=== PATIENT | female | born 1985 | race Caucasian/White ===

== ENCOUNTER 2025-01-07 09:58 | Emergency (ER) | payer SELFPAY ==
--- NOTE | ~2025-01-07 | XR_ITS ---
EXAMINATION: XR hand RT min 3V DATE: 01/07/2025 10:42 INDICATION: Lateral right hand pain and swelling post fall TECHNIQUE: Posteroanterior, oblique and lateral views of the right hand were obtained. COMPARISON: None. FINDINGS: Nondisplaced fracture at the base of the fifth metacarpal with subtle interruption of the ulnar-sided cortex on the oblique projection and suggestion of minimal buckling along the radial sided cortex on the dorsal palmar projection. No definitive intra-articular extension. Alignment remains essentially anatomic. There is mild overlying soft tissue swelling. Joint spaces are normal. IMPRESSION: 1. Nondisplaced fracture at the base of the right fifth metacarpal without evident intra-articular ex tension. Reviewed, dictated and finalized at location A. IMPRESSION: 1. Nondisplaced fracture at the base of the right fifth metacarpal without evid ent intra-articular extension.
--- NOTE | ~2025-01-07 | XR_ITS ---
EXAMINATION: XR shoulder LT min 2V DATE: 01/07/2025 10:43 INDICATION: Superior left shoulder pain post fall TECHNIQUE: AP internally and externally rotated, AP oblique externally rotated and transscapular Y vi ews of the left shoulder were obtained. COMPARISON: None FINDINGS: Upper thoracic levoscoliosis with moderate spondylosis. Normal alignment at the left shoulder. No fr acture. Glenohumeral joint is normal. Acromioclavicular joint is normal. Soft tissues are unremarkabl e. Visualized portion of the lungs are clear. Stenting along the thoracic aorta. Likely carotid body stimulator with partial split the subcutaneous tissues at the anterolateral left chest wall and lead tips projecting over the left base of the neck. IMPRESSION: No acute osseous abnormality. Reviewed, dictated and finalized at location A.
--- OUTSIDE RECORDS SUMMARY | 2025-01-07 10:02 | XMS_ITS | Referral Summary ---
Author Organization [facility] [address] [facility] [[email or web address]] Address [address] [place] [address] Care Team Providers Care Professor Of Biostatistics Name Role Phone Nelly Pond Primary Care Provider +1- [phone] Allergies No known active allergies Medications OXcarbazepine (TRILEPTAL) 600 mg tablet Take by mouth 07/18/2012 Active lamoTRIgine (LaMICtal) 100 mg tablet TAKE 1 & 1 2 (ONE & ONE HALF) TABLETS BY MOUTH ONCE DAILY IN THE MORNING 3 03/24/2019 Active levETIRAcetam (KEPPRA) 750 mg tablet Take 1,500 mg by mouth 2 (two) times a day 3 04/26/2019 Active FYCOMPA 4 mg tablet 05/02/2019 Active citalopram (CeleXA) 10 mg tablet Take 10 mg by mouth 2 (two) times a day 06/24/2020 Active Active Problems Problem Noted Date Diagnosed Date BMI 27.0-27.9,adult 06/26/2020 Assessment & Plan (06/26/2020 12:26 PM CATECHIST): Weight/BMI is in healthy range. Continue healthy lifestyle to maintain. Need for influenza vaccination 06/26/2020 Assessment & Plan (06/26/2020 9:25 PM CATECHIST): Updated in office today Seizure disorder 05/12/2019 Overview (05/16/2019): VNS in place Continue with Neurology Assessment & Plan (06/26/2020 9:26 PM CATECHIST): Continue per neurology Intellectual disability 05/12/2019 Assessment & Plan (05/16/2019 8:58 PM CDT): Still lives with father who technical support assistant with her care/coordination Mild episode of recurrent major depressive disor jacob 05/12/2019 Overview (05/12/2019): Mother 2013 lung cancer and still grieving Assessment & Plan (06/26/2020 9:24 PM CATECHIST): Neurologist started her on Celexa Assessment & Plan (05/16/2019 8:58 PM CDT): Stable today 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 Villatoro for management. History of open heart surgery 03/13/2015 Common truncus arteriosus 02/27/2015 Assessment & Plan (06/26/2020 9:24 PM CATECHIST): See aortic valve disease Assessment & Plan (05/16/2019 8:57 PM CDT): Refer back to Dr. Villatoro for management. Aortic valve disease 02/27/2015 Assessment & Plan (06/26/2020 9:23 PM CATECHIST): Provided letter from Dr. Villatoro's office for her father to call and set up followup. If he has problems, he is to call and will be glad to assist. Assessment & Plan (05/16/2019 8:57 PM CDT): Refer back to Dr. Villatoro for management. Resolved Problems Problem Noted Date Diagnosed Date Resolved Date Medicare annual wellness visit, subsequent 06/26/2020 06/30/2021 Assessment & Plan (06/26/2020 9:26 PM CATECHIST): Encouraged healthy lifestyle, good nutrition and exercise. Encouraged Calcium and Vitamin D and weight bearing exercise for bone health. Reviewed immunizations Reviewed age appropirate screenings. Medicare annual wellness visit, initial 05/16/2019 06/26/2020 Assessment & Plan (06/26/2020 9:24 PM CATECHIST): Encouraged healthy lifestyle, good nutrition and exercise. Encouraged Calcium and Vitamin D and weight bearing exercise for bone health. Reviewed immunizations Reviewed age appropirate screenings. Assessment & Plan (05/16/2019 8:58 PM CDT): Encouraged healthy lifestyle, good nutrition and exercise. Encouraged Calcium and Vitamin D and weight bearing exercise for bone health. Reviewed immunizations Reviewed age appropirate screenings. Documentation is on the chart Need for immunization against influenza 05/16/2019 06/26/2020 Assessment & Plan (06/26/2020 9:24 PM CATECHIST): Updated in office today Assessment & Plan (05/16/2019 8:59 PM CDT): Updated in office today BMI 28.0-28.9,adult 05/15/2019 06/26/20 20 Assessment & Plan (05/15/2019 4:37 PM CDT): BMI Follow-up includes: Discussed diet and exercising counseling. Immunizations Immunization Administration Dates Next Due Influenza, Quadrivalent, Spl it, Preservative Free, Intramuscular 06/26/2020,05/15/2019 Influenza, Trivalent, IM (MDV) 05/15/2013 Influenza, Trivalent, Preservative Free, Intramu scular 04/06/2017 Tdap 08/18/2016 Social History Tobacco Use Types Packs/Day Years Used Date Smoking Tobacco: Never Smokeless Tobacco: Never Alcohol Use Standard Drinks/Week Comments Yes 0 (1 standard drink = 0.6 oz pur e alcohol) PHQ-2 Answer Date Recorded PHQ-2 Total Score (If total score is 3 or more points, staff should administer the PHQ-9) 6 06/26/2020 Personal Safety Answer Date Recorded Getting School Help Needed Not on file 10/23 Comments Unknown Sex and Gender Information Value Date Recorded Sex Assigned at Not on file Legal Sex Female 3:36 AM CATECHIST Gender Identity Not on file Sexual Orientation Not on file Last Filed Vital Signs Vital Sign Reading Time Taken Comments Blood Pressure 128/66 06/26/2020 12:22 PM CATECHIST Pulse 56 06/26/2020 12:22 PM CATECHIST Temperature 36.5 C (97.7 F) 06/26/2020 12:22 PM CATECHIST Respiratory Rate - - Oxygen Saturation 98% 06/26/2020 12:22 PM CATECHIST Inhaled Oxygen Concentration - - Weight 65.9 kg (145 lb 3.2 oz) 06/26/2020 12:22 PM CATECHIST Height 154.9 cm (5' 1) 06/26/2020 12:22 PM CATECHIST Body Mass Index 27.44 06/26/2020 12:22 PM CATECHIST Plan of Treatment [place] [address] [facility] MEDICARE [facility] Address: [address] [address] [place] [address] Care Teams Professor Of Biostatistics Relationship Specialty Start Date End Date Nelly Pond PA [address] [facility] [address] [place] [address] PCP - General Internal Medicine 12/23/18
--- OUTSIDE RECORDS SUMMARY | 2025-01-07 10:02 | XMS_ITS | Encounter Summary ---
Author Organization [facility] Address [address] [place] [address] Phone Care Team Providers Care Cook Cashier Food Prep Name Role Phone Nelly Pond Primary Care Provider [phone]- [phone] Encounter Details Date Type Department Care Team (Latest Contact Info) Description 03/13/2015 Orders Only [facility] Scanning, Provider Social History Tobacco Use Types Packs/Day Years Used Date Smoking Tobacco: Never Alcohol Use Standard Drinks/Week Comments Yes 0 (1 standard drink = 0.6 oz pur e alcohol) Comments Unknown Sex and Gender Information Value Date Recorded Sex Assigned at Not on file Legal Sex Female 3:36 AM MEDIA PROMOTER Gender Identity Not on file Sexual Orientation Not on file documented as of this encounter Plan of Treatment Not on file documented as of this encounter Procedures Procedure Name Priority Date/Time Associated Diagnosis Comments CARDIOLOGY DOCUMENT SCAN 03/13/2015 documented in this encounter Results * SCAN - CARDIOLOGY (03/13/2015) Anatomical Region Laterality Modality Other us Provider Scanning CV CARDIAC SERVICES PROCEDURES Final Result documented in this encounter Visit Diagnoses Not on filedocumented in this encounter Care Teams Cook Cashier Food Prep Relationship Specialty Start Date End Date Nelly Pond PA [address] [place] [address] PCP - General Internal Medicine 12/23/18 documented as of this encounter
--- OUTSIDE RECORDS SUMMARY | 2025-01-07 10:02 | XMS_ITS | Clinical Summary ---
Author Organization [facility] [address] [facility] Address [address] [place] [address] Care Team Providers Care Weight Loss Physician Name Role Phone Nelly Pond Primary Care Provider +1- [phone] Allergies No known active allergies Medications OXcarbazepine [...] 06/26/2020 Assessment & Plan (06/26/2020 12:26 PM SECONDARY SET UP MAN): Weight/BMI is in healthy range. Continue healthy lifestyle to maintain. Need for influenza vaccination 06/26/2020 Assessment & Plan (06/26/2020 9:25 PM SECONDARY SET UP MAN): Updated in office today Seizure disorder 05/12/2019 Overview (05/16/2019): VNS in place Continue with Neurology Assessment & Plan (06/26/2020 9:26 PM SECONDARY SET UP MAN): Continue per neurology Intellectual disability 05/12/2019 Assessment & Plan (05/16/2019 8:58 PM CDT): Still lives with father who orthopaedic physician assistant with her care/coordination Mild episode of recurrent major depressive disor jacob 05/12/2019 Overview (05/12/2019): Mother 2013 lung cancer and still grieving Assessment & Plan (06/26/2020 9:24 PM SECONDARY SET UP MAN): Neurologist started her on Celexa Assessment & Plan (05/16/2019 8:58 PM CDT): Stable today 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 Villatoro for management. History of open heart surgery 03/13/2015 Common truncus arteriosus 02/27/2015 Assessment & Plan (06/26/2020 9:24 PM SECONDARY SET UP MAN): See aortic valve disease Assessment & Plan (05/16/2019 8:57 PM CDT): Refer back to Dr. Villatoro for management. Aortic valve disease 02/27/2015 Assessment & Plan (06/26/2020 9:23 PM SECONDARY SET UP MAN): Provided letter from Dr. Villatoro's office for [...] 06/30/2021 Assessment & Plan (06/26/2020 9:26 PM SECONDARY SET UP MAN): Encouraged healthy lifestyle, good nutrition and exercise. Encouraged Calcium and Vitamin D and weight bearing exercise for bone health. Reviewed immunizations Reviewed age appropirate screenings. Medicare annual wellness visit, initial 05/16/2019 06/26/2020 Assessment & Plan (06/26/2020 9:24 PM SECONDARY SET UP MAN): Encouraged healthy lifestyle, good nutrition and exercise. [...] 06/26/2020 Assessment & Plan (06/26/2020 9:24 PM SECONDARY SET UP MAN): Updated in office today Assessment & Plan (05/16/2019 8:59 PM CDT): Updated in office today BMI 28.0-28.9,adult 05/15/2019 06/26/20 20 Assessment & Plan (05/15/2019 4:37 PM CDT): BMI Follow-up includes: Discussed diet and exercising counseling. Immunizations Immunization Administration Dates Next Due Influenza, Quadrivalent, Spl it, Preservative Free, Intramuscular 06/26/2020,05/15/2019 Influenza, Trivalent, IM (MDV) 05/15/2013 Influenza, Trivalent, Preservative Free, Intramu scular 04/06/2017 Tdap 08/18/2016 Family History Medical History Relation Name Comments Other Father 2 Alive and well; Relation Name Status Comments Father 1 Alive Father 2 Social History Tobacco Use Types Packs/Day Years [...] on file Legal Sex Female 3:36 AM SECONDARY SET UP MAN Gender Identity Not on file Sexual Orientation Not on file Obstetrics History Last Filed Vital Signs Vital Sign Reading Time Taken Comments Blood Pressure 128/66 06/26/2020 12:22 PM SECONDARY SET UP MAN Pulse 56 06/26/2020 12:22 PM SECONDARY SET UP MAN Temperature 36.5 C (97.7 F) 06/26/2020 12:22 PM SECONDARY SET UP MAN Respiratory Rate - - Oxygen Saturation 98% 06/26/2020 12:22 PM SECONDARY SET UP MAN Inhaled Oxygen Concentration - - Weight 65.9 kg (145 lb 3.2 oz) 06/26/2020 12:22 PM SECONDARY SET UP MAN Height 154.9 cm (5' 1) 06/26/2020 12:22 PM SECONDARY SET UP MAN Body Mass Index 27.44 06/26/2020 12:22 PM SECONDARY SET UP MAN Plan of Treatment Not on file Insurance [facility] MEDICARE [facility] Address: [address] [address] [place] [address] Care Teams Weight Loss Physician Relationship Specialty Start Date End Date Nelly Pond PA [address] [facility] [address] [place] [address] PCP - General Internal Medicine 12/23/18
--- OUTSIDE RECORDS SUMMARY | 2025-01-07 10:02 | XMS_ITS | Encounter Summary ---
Author Organization [facility] Address [address] [place] [address] Phone Care Team Providers Care Mobile Equipment Operator Name Role Phone Latrell Lezama MD Primary Care Provider [phone] [phone] Sly Kurtz MD Unavailable [phone] Reason for Visit * Reason Comments Medication Refill Encounter Details Date Type Department Care Team (Late st Contact Info) Description 09/22/2020 Refill [facility] - Neurology [facility] [address] [place] [address] Sly Kurtz MD [address] [place] [phone] Medication Refill Social History Tobacco Use Types Packs/Day Years Used Date Smoking Tobacco: Never Smokeless Tobacco: Never Alcohol Use Standard Drinks/Week Comments Yes 0 (1 standard drink = 0.6 oz pur e alcohol) once every few months Comments No Sex and Gender Information Value Date Recorded Sex Assigned at Not on file Legal Sex Female 9:46 PM CDT Gender Identity Not on file Sexual Orientation Not on file documented as of this encounter Plan of Treatment Not on file documented as of this encounter Visit Diagnoses Not on filedocumented in this encounter Care Teams Mobile Equipment Operator Relationship Specialty Start Date End Date Latrell Lezama MD [address] [place], [place] [id number] PCP - General Family Medicine 09/09/15 Sly Kurtz MD [address] [place] [address] Consulting Physician Neurology 09/09/15 06/25/24 documented as of this encounter
--- OUTSIDE RECORDS SUMMARY | 2025-01-07 10:02 | XMS_ITS | Encounter Summary ---
Author Organization [facility] Address [address] [place] [address] Phone Care Team Providers Care Internet Sales Associate Name Role Phone Latrell Lezama MD Primary Care Provider [phone] [phone] Sly Kurtz MD Unavailable [phone] Reason for Visit * Reason Comments Medication Refill Encounter Details Date Type Department Care Team (Late st Contact Info) Description 11/20/2020 Refill [facility] - Neurology [facility] [address] [place] [address] Sly Kurtz MD [address] [place] [id number] Medication Refill Social History Tobacco Use Types [...] documented as of this encounter Visit Diagnoses Diagnosis Grief Adjustment disorder with depressed mood documented in this encounter Care Teams Internet Sales Associate Relationship Specialty Start Date End Date Latrell Lezama MD [address] [place] [address] PCP - General Family Medicine 09/09/15 Sly Kurtz MD [address] [place] [address] Consulting Physician Neurology 09/09/15 06/25/24 documented as of this encounter
--- OUTSIDE RECORDS SUMMARY | 2025-01-07 10:02 | XMS_ITS | Encounter Summary ---
Author Organization [facility] Address [address] [place] [address] Phone Care Team Providers Care Director Presales Name Role Phone Latrell Lezama MD Primary Care Provider [phone] [phone] Sly Kurtz MD Unavailable [phone] Reason for Visit * Reason Comments Medication Refill Encounter Details Date Type Department Care Team (Late st Contact Info) Description 10/02/2020 Refill [facility] - Neurology [facility] [address] [place] [address] Sly Kurtz MD [address] [place] [phone] Medication Refill Social History Tobacco Use Types [...] on filedocumented in this encounter Care Teams Director Presales Relationship Specialty Start Date End Date Latrell Lezama MD [address] [place], [place] [id number] PCP - General Family Medicine 09/09/15 Sly Kurtz MD [address] [place] [address] Consulting Physician Neurology 09/09/15 06/25/24 documented as of this encounter
--- OUTSIDE RECORDS SUMMARY | 2025-01-07 10:02 | XMS_ITS | Encounter Summary ---
Author Organization [facility] Address [address] [place] [address] Phone Care Team Providers Care Poll Watcher Name Role Phone Latrell Lezama MD Primary Care Provider [phone] [phone] Sly Kurtz MD Unavailable [phone] Reason for Visit * Reason Comments Medication Refill Encounter Details Date Type Department Care Team (Late st Contact Info) Description 07/21/2020 Refill [facility] - Neurology [facility] [address] [place] [address] Sly Kurtz MD [address] [place] [address] Medication Refill Social History Tobacco Use Types [...] on filedocumented in this encounter Care Teams Poll Watcher Relationship Specialty Start Date End Date Latrell Lezama MD [address] [place], [place] [phone] PCP - General Family Medicine 09/09/15 Sly Kurtz MD [address] [place] [address] Consulting Physician Neurology 09/09/15 06/25/24 documented as of this encounter
--- OUTSIDE RECORDS SUMMARY | 2025-01-07 10:02 | XMS_ITS | Clinical Summary ---
Author Organization [facility] Address [address] [place] [address] [place] [address] Care Team Providers Care Flat Spring Assembler Name Role Phone Latrell Lezama MD Primary Care Provide r Source Comments [facility],non-owned Affiliates and Associated Physician Practices is amultiple site organization consisting of ambulatory clinics and hospital sitesin [place], [place], [place] and [place]. This disclosure is being madepursuant to the Care Everywhere program and may not contain all information available regarding this patient. Last updated 18.[facility] Allergies No known active allergies Medications * Be aware that medications may not be up to date on this document. Alwaysverify current medications with the patient. levETIRAcetam (KEPPRA) 750 MG tablet Take 750 mg by mouth 2 times daily Active citalopram (CELEXA) 10 MG tablet Take 10 mg by mouth once daily Active lamoTRIgine (LAMICTAL) 200 MG tablet Take 200 mg by mouth once daily Active OXcarbazepine (TRILEPTAL) 600 MG tablet Take 900 mg by mouth 2 times daily Active Social History Tobacco Use Types Packs/Day Years Used Date Smoking Tobacco: Never Smokeless Tobacco: Never Comments Unknown Sex and Gender Information Value Date Recorded Sex Assigned at Not on file Legal Sex Female 3:05 PM CDT Gender Identity Not on file Sexual Orientation Not on file Last Filed Vital Signs Vital Sign Reading Time Taken Comments Blood Pressure 133/72 06/17/2017 9:02 AM CORRECTIONS SERGEANT Pulse 74 06/17/2017 9:02 AM CORRECTIONS SERGEANT Temperature 36.8 C (98.3 F) 06/11/2017 11:52 AM CDT Respiratory Rate 16 06/11/2017 11:52 AM CDT Oxygen Saturation 100% 06/11/2017 11:52 AM CDT Inhaled Oxygen Concentration - - Weight 59 kg (130 lb) 06/17/2017 9:02 AM CORRECTIONS SERGEANT Height 152.4 cm (5') 06/17/2017 9:02 AM CORRECTIONS SERGEANT Body Mass Index 25.39 06/17/2017 9:02 AM CORRECTIONS SERGEANT Plan of Treatment Health Maintenance Due Date Last Done Comments LIPID TESTING 1984 MAMMOGRAM 1984 HIV SCREENING 12/19/1999 HEPATITIS C SCREENING 12/14/2002 DTAP/TDAP/TD VACCINES (1 - Tdap) 12/19/2003 HEPATITIS B VACCINE (1 of 3 - 19+ 3-dose series) 12/19/2003 COVID-19 VACCINE ( - 2023-2 5 season) 2024 DEPRESSION SCREENING 08/09/2024 INFLUENZA VACCINE (Season Ended) 2025 ZOSTER VACCINE (1 of 2) 2034 HIB VACCINE Aged Out No longer eligi ble based on patient's age to complete this topic HPV VACCINE Aged Out No longer eligi ble based on patient's age to complete this topic MENINGOCOCCAL (Group B) VACC INE SHARED DECISION-MAKING Aged Out No longer eligibl e based on patient's age to complete this topic MENINGOCOCCAL GROUPS A/C/Y/W VACCINE Aged Out No longer eligible b ased on patient's age to complete this topic PNEUMOCOCCAL VACCINE Aged Out No long er eligible based on patient's age to complete this [place] [address] [place] [address] [place] [address] MEDICARE [place] - [place] Advance Directives * Full Code (Latest Code Status on File) Date Activated Date Inactivated Comments 02/15/2017 9:53 AM 02/18/2017 3:21 PM Care Teams Flat Spring Assembler Relationship Specialty Start Date End Date Latrell Lezama MD PCP - General Family Medicine 02/16/17
--- OUTSIDE RECORDS SUMMARY | 2025-01-07 10:02 | XMS_ITS | Encounter Summary ---
Author Organization [facility] Address [address] [facility] [place] [address] Phone Care Team Providers Care Surgical First Assistant Name Role Phone Latrell Lezama MD Primary Care Provider [phone] [phone] Sly Kurtz MD Unavailable [phone] Reason for Visit * Reason Comments Medication Refill Encounter Details Date Type Department Care Team (Late st Contact Info) Description 02/15/2020 Refill [facility] - Neurology [facility] #[address] [place] [address] Sly Kurtz MD [address] [place] [phone] Medication Refill Social History Tobacco Use Types [...] on file Sexual Orientation Not on file COVID-19 Exposure Response Date Recorded In the last month, have you been in contact with someone who was confirmed or suspected to have Coronavirus / COVID-19? No / Unsure 02/15/2020 3:15 PM CDT documented as of this encounter Plan of Treatment Not on file documented as of this encounter Visit Diagnoses Not on filedocumented in this encounter Care Teams Surgical First Assistant Relationship Specialty Start Date End Date Latrell Lezama MD [address] [place] [address] PCP - General Family Medicine 09/09/15 Sly Kurtz MD [address] [place] [address] Consulting Physician Neurology 09/09/15 06/25/24 documented as of this encounter
--- OUTSIDE RECORDS SUMMARY | 2025-01-07 10:02 | XMS_ITS | Clinical Summary ---
Author Organization [facility] Address [address] [facility] [address] [facility], [place] [address] Phone Care Team Providers Care Drywall Hanger Name Role Phone Latrell Lezama MD Primary Care Provider [phone]- [phone] Allergies No known active allergies Medications citalopram (CeleXA) 10 MG TabletIndicatio ns:Grief Take 2 tablets by mouth twice daily 120 Tablet 11/21/2020 Active diazePAM (Diastat AcuDial) 10 MG GelIndications: Seizure, partial (HCC) 10 mg by Rectal route daily as needed for Other (for seizure longer than 5 min). 10 mg 3 01/13/2021 Active levETIRAcetam (KEPPRA) 750 MG TabletIndicatio ns:Seizure, partial (HCC) Take 1 Tablet by mouth 2 times daily. 360 Tablet 01/13/2021 Active citalopram (CeleXA) 40 MG TabletIndicatio ns:Seizure, partial (HCC) Take 0.5 Tablets by mouth 2 times daily. 90 Tablet 03/26/2021 Active lamoTRIgine (LaMICtal) 100 MG TabletIndicatio ns:Seizure, partial (HCC) TAKE 1 & 1/2 TABLETS BY MOUTH ONCE DAILY IN THE MORNING 135 Tablet 03/26/2021 Active lamoTRIgine (LaMICtal) 200 MG TabletIndicatio ns:Seizure, partial (HCC) Take 1 Tablet by mouth nightly. 90 Tablet 03/26/2021 Active OXcarbazepine (TRILEPTAL) 600 MG TabletIndicatio ns:Seizure, partial (HCC) TAKE 1 & 1/2 TABLETS BY MOUTH TWICE DAILY 270 Tablet 03/26/2021 Active Perampanel (Fycompa) 6 MG TabletIndicatio ns:Seizure, partial (HCC) Take 1 Tablet by mouth nightly. 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 Immunizations Immunization Administration Dates Next Due Influenza Vaccine, Quadrivalent, PF 06/26/2020,1 ,04/06/2017 Social History Tobacco Use Types Packs/Day Years Used Date Smoking Tobacco: Never Smokeless Tobacco: Never Tobacco Cessation:Counseling Given: No Alcohol Use Standard Drinks/Week Comments Yes 0 (1 standard drink = 0.6 oz pur e alcohol) once every few months Comments No Sex and Gender Information Value Date Recorded Sex Assigned at Not on file Legal Sex Female 9:46 PM CDT Gender Identity Not on file Sexual Orientation Not on file Last Filed Vital Signs Vital Sign Reading Time Taken Comments Blood Pressure 116/60 05/16/2020 1:20 PM CDT Pulse 78 05/16/2020 1:20 PM CDT Temperature 36.5 C (97.7 F) 05/16/2020 1:20 PM CDT Respiratory Rate 16 05/16/2020 1:20 PM CDT Oxygen Saturation 99% 05/16/2020 1:20 PM CDT Inhaled Oxygen Concentration - - Weight 66.6 kg (146 lb 12.8 oz) 05/16/2020 1:20 PM CDT Height 152.4 cm (5') 05/16/2020 1:20 PM CDT Body Mass Index 28.67 05/16/2020 1:20 PM CDT Plan of Treatment Health Maintenance Due Date Last Done Comments Hepatitis C Virus (HCV) Screening 1984 Hepatitis B Immunization (1 of 3 - 19+ 3-dose series) 12/19/2003 Influenza Immunization (#1) 04/09/202406/09, 05/15/2019, 04/06/2017, Additional history exists SARS-COV-2 Immunization ( - season) 2024 Respiratory Syncytial Virus (RSV) Immunization (Adult) (1 - 1-dose 75+ series) 12/19/2059 DTaP/Tdap/Td Immunization Discontinued 08/18/2016 TdaP Immunization Completed 08/18/2016 Meningococcal Immunization (ACWY) Aged Out No longer eligible based on patient's age to complete this topic Pneumococcal Immunization Combined Aged Out No longer eligible based on patient's age to complete this topic Rotavirus Immunization Aged Out No lo nger eligible based on patient's age to complete [place] [address] MEDICARE [place]ID [place] Care Teams Drywall Hanger Relationship Specialty Start Date End Date Latrell Lezama MD [address] [place] [address] PCP - General Family Medicine 09/09/15
--- OUTSIDE RECORDS SUMMARY | 2025-01-07 10:02 | XMS_ITS | Encounter Summary ---
Author Organization [facility] Address [address] [place] [address] Phone Care Team Providers Care Drop Wire Operator Name Role Phone Latrell Lezama MD Primary Care Provider [phone] [phone] Sly Kurtz MD Unavailable [phone] Reason for Visit * Reason Comments Medication Refill Encounter Details Date Type Department Care Team (Late st Contact Info) Description 03/25/2020 [facility]ill [facility] [address] [place] [address] Sly Kurtz MD [address] [place] [address] Medication Refill Social History Tobacco Use Types [...] on filedocumented in this encounter Care Teams Drop Wire Operator Relationship Specialty Start Date End Date Latrell Lezama MD [address] [place], [place] [id number] PCP - General Family Medicine 09/09/15 Sly Kurtz MD [address] [place] [address] Consulting Physician Neurology 09/09/15 06/25/24 documented as of this encounter
--- OUTSIDE RECORDS SUMMARY | 2025-01-07 10:02 | XMS_ITS | Encounter Summary ---
Author Organization [facility] Address [address] [place]. [address] Phone Care Team Providers Care Concrete Boom Operator Name Role Phone Latrell Lezama MD Primary Care Provider [phone] [phone] Sly Kurtz MD Unavailable [phone] Reason for Visit * Reason Comments Medication Refill Encounter Details Date Type Department Care Team (Late st Contact Info) Description 06/23/2020 Refill [facility] - Neurology [facility] [address] [place] [address] Sly Kurtz MD [address] [place] [address] Medication Refill Social History Tobacco Use Types [...] have Coronavirus / COVID-19? No / Unsure 05/28/2020 12:11 PM CDT documented as of this encounter Plan of Treatment Not on file documented as of this encounter Visit Diagnoses Not on filedocumented in this encounter Care Teams Concrete Boom Operator Relationship Specialty Start Date End Date Latrell Lezama MD [address] [place] [address] PCP - General Family Medicine 09/09/15 Sly Kurtz MD [address] [place] [address] Consulting Physician Neurology 09/09/15 06/25/24 documented as of this encounter
--- OUTSIDE RECORDS SUMMARY | 2025-01-07 10:02 | XMS_ITS | Encounter Summary ---
Author Organization [facility] Address [address] [place] [address] Phone Care Team Providers Care Millinery Worker Name Role Phone Latrell Lezama MD Primary Care Provider [phone] [phone] Sly Kurtz MD Unavailable [phone] Reason for Visit * Reason Comments Medication Refill Encounter Details Date Type Department Care Team (Late st Contact Info) Description 04/10/2021 Refill [facility] - Neurology [facility] [address] [place] [address] Sly Kurtz MD [address] [place] [address] Medication Refill Social History Tobacco Use Types [...] as of this encounter Visit Diagnoses Diagnosis Seizure, partial w/ secondary generalize w/ intract seizure Other convulsions documented in this encounter Care Teams Millinery Worker Relationship Specialty Start Date End Date Latrell Lezama MD [address] [place] [address] PCP - General Family Medicine 09/09/15 Sly Kurtz MD [address] [place] [address] Consulting Physician Neurology 09/09/15 06/25/24 documented as of this encounter
--- OUTSIDE RECORDS SUMMARY | 2025-01-07 10:02 | XMS_ITS | Encounter Summary ---
Author Organization [facility] Address [address] [place] [address] Phone Care Team Providers Care Patient Access Specialist Name Role Phone Latrell Lezama MD Primary Care Provider [phone] [phone] Sly Kurtz MD Unavailable [phone] Reason for Visit * Reason Comments Medication Refill Encounter Details Date Type Department Care Team (Late st Contact Info) Description 12/08/2020 Refill [facility] [address] [place] [address] Sly Kurtz MD [address] [place] [address] Medication Refill Social History Tobacco Use Types [...] on filedocumented in this encounter Care Teams Patient Access Specialist Relationship Specialty Start Date End Date Latrell Lezama MD [address] [place], [place] [phone] PCP - General Family Medicine 09/09/15 Sly Kurtz MD [address] [place] [address] Consulting Physician Neurology 09/09/15 06/25/24 documented as of this encounter
--- OUTSIDE RECORDS SUMMARY | 2025-01-07 10:02 | XMS_ITS | Encounter Summary ---
Author Organization [facility] Address [address] [place] [address] Phone Care Team Providers Care Youtuber Name Role Phone Latrell Lezama MD Primary Care Provider [phone] [phone] Sly Kurtz MD Unavailable [phone] Reason for Visit * Reason Comments Medication Refill Encounter Details Date Type Department Care Team (Late st Contact Info) Description 01/15/2020 Refill [facility] [address] [place] [address] Sly Kurtz MD [address] [place] [address] Medication Refill Social History Tobacco Use Types [...] on filedocumented in this encounter Care Teams Youtuber Relationship Specialty Start Date End Date Latrell Lezama MD [address] [place], [place] [phone] PCP - General Family Medicine 09/09/15 Sly Kurtz MD [address] [place] [address] Consulting Physician Neurology 09/09/15 06/25/24 documented as of this encounter
--- OUTSIDE RECORDS SUMMARY | 2025-01-07 10:02 | XMS_ITS | Encounter Summary ---
Author Organization [facility] Address [address] [place] [address] Phone Care Team Providers Care Maintenance Service Supervisor Name Role Phone Latrell Lezama MD Primary Care Provider [phone] [phone] Sly Kurtz MD Unavailable [phone] Reason for Visit * Reason Comments Medication Refill Encounter Details Date Type Department Care Team (Late st Contact Info) Description 11/17/2020 Refill [facility] [address] [place] [address] Sly Kurtz MD [address] [place] [address] Medication Refill Social History Tobacco Use Types [...] on filedocumented in this encounter Care Teams Maintenance Service Supervisor Relationship Specialty Start Date End Date Latrell Lezama MD [address] [place], [place] [id number] PCP - General Family Medicine 09/09/15 Sly Kurtz MD [address] [place] [address] Consulting Physician Neurology 09/09/15 06/25/24 documented as of this encounter
--- OUTSIDE RECORDS SUMMARY | 2025-01-07 10:02 | XMS_ITS | Encounter Summary ---
Author Organization [facility] Address [address] [place] [address] Phone Care Team Providers Care Chemical Radiation Technician Name Role Phone Latrell Lezama MD Primary Care Provider [phone] [phone] Sly Kurtz MD Unavailable [phone] Reason for Visit * Reason Comments Medication Refill Encounter Details Date Type Department Care Team (Late st Contact Info) Description 11/09/2020 Refill [facility] [address] [place] [address] Sly Kurtz MD [address] [place] [address] Medication Refill Social History Tobacco Use Types [...] mood documented in this encounter Care Teams Chemical Radiation Technician Relationship Specialty Start Date End Date Latrell Lezama MD [address] [place] [address] PCP - General Family Medicine 09/09/15 Sly Kurtz MD [address] [place] [address] Consulting Physician Neurology 09/09/15 06/25/24 documented as of this encounter
[2025-01-07 10:10] VITALS: O2SAT 98
[2025-01-07 10:11] VITALS: BP 132/74; PULSE 72; RESP 16; O2SAT 100
[2025-01-07 10:13] VITALS: BP 132/74; PULSE 80; RESP 12; TEMP 37.2; O2SAT 100
--- NOTE | 2025-01-07 11:42 | ED_ITS ---
HPI - Fall General Chief Complaint: Fall Stated Complaint: fell down stairs, possible seizure Time Seen by Provider: 01/07/25 10:08 Related Data Allergies Allergy/AdvReac Type Severity Reaction Status Date / Time No Known Allergies Allergy Verified 01/07/25 10:00 Course Vital Signs Vital signs: Vital Signs Temperature 98.9 F 01/07/25 10:13 Pulse Rate 80 01/07/25 10:13 Respiratory Rate 12 01/07/25 10:13 Blood Pressure 132/74 01/07/25 10:13 Pulse Oximetry 100 01/07/25 10:13 Oxygen Delivery Room Air 01/07/25 10:13 Temperature 98.9 F 01/07/25 10:13 Pulse Rate 80 01/07/25 10:13 Respiratory Rate 12 01/07/25 10:13 Blood Pressure 132/74 01/07/25 10:13 Pulse Oximetry 100 01/07/25 10:13 Oxygen Delivery Room Air 01/07/25 10:13 Discharge Plan Discharge Clinical Impression: Fracture of wrist Patient Disposition: Home Condition: Stable Instructions: Hand Fracture (ED), Epilepsy (ED) Additional Instructions: Please keep the splint on, and follow up with your doctor when you get home. You can always return to the ER for any further issues. Make sure you are taking all your medications. Patient Language: Kiswahili Follow-up/Referrals: PHYSICIAN NOT ON STAFF,NONSTAFF [Primary Care Provider] -
--- OUTSIDE RECORDS SUMMARY | 2025-01-07 17:57 | XMS_ITS | Encounter Summary ---
Author Organization [facility] Address [address] [place] [address] Phone Care Team Providers Care Mining Engineering Technologist Name Role Phone Latrell Lezama MD Primary Care Provider [phone] [phone] Sly Kurtz MD Unavailable [phone] Reason for Visit * Reason Comments Medication Refill Encounter Details Date Type Department Care Team (Late st Contact Info) Description 07/21/2020 [facility]ill [facility] [address] [place] [address] Sly Kurtz MD [address] [place] [address] Medication Refill Social History Tobacco Use Types [...] on filedocumented in this encounter Care Teams Mining Engineering Technologist Relationship Specialty Start Date End Date Latrell Lezama MD [address] [place], [place] [phone] PCP - General Family Medicine 09/09/15 Sly Kurtz MD [address] [place] [address] Consulting Physician Neurology 09/09/15 06/25/24 documented as of this encounter
--- OUTSIDE RECORDS SUMMARY | 2025-01-07 17:57 | XMS_ITS | Encounter Summary ---
Author Organization [facility] Address [address] [place] [address] Phone Care Team Providers Care Cheerleading Coach Name Role Phone Latrell Lezama MD Primary Care Provider [phone] [phone] Sly Kurtz MD Unavailable [phone] Reason for Visit * Reason Comments Medication Refill Encounter Details Date Type Department Care Team (Late st Contact Info) Description 12/08/2020 Refill [facility] [address] [place] [address] Sly Kurtz MD [address] [place] [address] Medication Refill Social History Tobacco Use Types [...] on filedocumented in this encounter Care Teams Cheerleading Coach Relationship Specialty Start Date End Date Latrell Lezama MD [address] [place], [place] [address] PCP - General Family Medicine 09/09/15 Sly Kurtz MD [address] [place] [address] Consulting Physician Neurology 09/09/15 06/25/24 documented as of this encounter
--- OUTSIDE RECORDS SUMMARY | 2025-01-07 17:57 | XMS_ITS | Clinical Summary ---
Author Organization [facility] Address [address] [facility] [place] [address] Phone Care Team Providers Care Metal Weather Stripper Name Role Phone Latrell Lezama MD Primary Care Provider [phone] Allergies No known active allergies Medications citalopram [...] patient's age to complete [place] [address] MEDICARE [place]ID [place] Care Teams Metal Weather Stripper Relationship Specialty Start Date End Date Latrell Lezama MD [address] [place] [address] PCP - General Family Medicine 09/09/15
--- OUTSIDE RECORDS SUMMARY | 2025-01-07 17:57 | XMS_ITS | Encounter Summary ---
Author Organization [facility] Address [address] [facility] [place] [address] Phone Care Team Providers Care Mri Technologist Name Role Phone Latrell Lezama MD Primary Care Provider [phone] Sly Kurtz MD Unavailable [phone] Reason for Visit * Reason Comments Medication Refill Encounter Details Date Type Department Care Team (Late st Contact Info) Description 06/23/2020 Refill [facility] - Neurology [facility] [address] [place] [address] Sly Kurtz MD [address] [place] [address] Medication Refill Social History Tobacco Use Types [...] on filedocumented in this encounter Care Teams Mri Technologist Relationship Specialty Start Date End Date Latrell Lezama MD [address] [place] [address] PCP - General Family Medicine 09/09/15 Sly Kurtz MD [address] [place] [address] Consulting Physician Neurology 09/09/15 06/25/24 documented as of this encounter
--- OUTSIDE RECORDS SUMMARY | 2025-01-07 17:57 | XMS_ITS | Encounter Summary ---
Author Organization [facility] Address [address] [place] [address] Phone Care Team Providers Care Cloak Room Attendant Name Role Phone Latrell Lezama MD Primary Care Provider [phone] [phone] Sly Kurtz MD Unavailable [phone] Reason for Visit * Reason Comments Medication Refill Encounter Details Date Type Department Care Team (Late st Contact Info) Description 11/20/2020 [facility]ill [facility] [address] [place] [address] Sly Kurtz MD [address] [place] [address] Medication Refill Social History Tobacco Use Types [...] mood documented in this encounter Care Teams Cloak Room Attendant Relationship Specialty Start Date End Date Latrell Lezama MD [address] [place] [address] PCP - General Family Medicine 09/09/15 Sly Kurtz MD [address] [place] [address] Consulting Physician Neurology 09/09/15 06/25/24 documented as of this encounter
--- OUTSIDE RECORDS SUMMARY | 2025-01-07 17:57 | XMS_ITS | Encounter Summary ---
Author Organization [facility] Address [address] [place] [address] Phone Care Team Providers Care Military Lawyer Name Role Phone Latrell Lezama MD Primary Care Provider [phone] [phone] Sly Kurtz MD Unavailable [phone] Reason for Visit * Reason Comments Medication Refill Encounter Details Date Type Department Care Team (Late st Contact Info) Description 11/17/2020 Refill [facility] #[address] [place] [address] Sly Kurtz MD [address] [place] [address] Medication Refill Social History Tobacco Use Types [...] on filedocumented in this encounter Care Teams Military Lawyer Relationship Specialty Start Date End Date Latrell Lezama MD [address] [place], [place] [phone] PCP - General Family Medicine 09/09/15 Sly Kurtz MD [address] [place] [address] Consulting Physician Neurology 09/09/15 06/25/24 documented as of this encounter
--- OUTSIDE RECORDS SUMMARY | 2025-01-07 17:57 | XMS_ITS | Encounter Summary ---
Author Organization [facility] Address [address] [place] [address] Phone Care Team Providers Care Perpetual Inventory Clerk Name Role Phone Latrell Lezama MD Primary Care Provider [phone] [phone] Sly Kurtz MD Unavailable [phone] Reason for Visit * Reason Comments Medication Refill Encounter Details Date Type Department Care Team (Late st Contact Info) Description 11/09/2020 Refill [facility] [address] [place] [address] Sly Kurtz MD [address] [place] [address] Medication Refill Social History Tobacco Use Types [...] mood documented in this encounter Care Teams Perpetual Inventory Clerk Relationship Specialty Start Date End Date Latrell Lezama MD [address] [place] [address] PCP - General Family Medicine 09/09/15 Sly Kurtz MD [address] [place] [address] Consulting Physician Neurology 09/09/15 06/25/24 documented as of this encounter
--- OUTSIDE RECORDS SUMMARY | 2025-01-07 17:57 | XMS_ITS | Clinical Summary ---
Author Organization [facility] [facility] Address [address] [place] [address] Care Team Providers Care It Project Lead Name Role Phone Nelly Pond Primary Care Provider +1- [phone] Allergies No known active allergies Medications OXcarbazepine [...] 06/26/2020 Assessment & Plan (06/26/2020 12:26 PM GASTROENTEROLOGY PROFESSOR): Weight/BMI is in healthy range. Continue healthy lifestyle to maintain. Need for influenza vaccination 06/26/2020 Assessment & Plan (06/26/2020 9:25 PM GASTROENTEROLOGY PROFESSOR): Updated in office today Seizure disorder 05/12/2019 Overview (05/16/2019): VNS in place Continue with Neurology Assessment & Plan (06/26/2020 9:26 PM GASTROENTEROLOGY PROFESSOR): Continue per neurology Intellectual disability 05/12/2019 Assessment & Plan (05/16/2019 8:58 PM CDT): Still lives with father who pastry assistant with her care/coordination Mild episode of recurrent major depressive disor jacob 05/12/2019 Overview (05/12/2019): Mother 2013 lung cancer and still grieving Assessment & Plan (06/26/2020 9:24 PM GASTROENTEROLOGY PROFESSOR): Neurologist started her on Celexa Assessment & Plan (05/16/2019 8:58 PM CDT): Stable today 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 Villatoro for management. History of open heart surgery 03/13/2015 Common truncus arteriosus 02/27/2015 Assessment & Plan (06/26/2020 9:24 PM GASTROENTEROLOGY PROFESSOR): See aortic valve disease Assessment & Plan (05/16/2019 8:57 PM CDT): Refer back to Dr. Villatoro for management. Aortic valve disease 02/27/2015 Assessment & Plan (06/26/2020 9:23 PM GASTROENTEROLOGY PROFESSOR): Provided letter from Dr. Villatoro's office for [...] 06/30/2021 Assessment & Plan (06/26/2020 9:26 PM GASTROENTEROLOGY PROFESSOR): Encouraged healthy lifestyle, good nutrition and exercise. Encouraged Calcium and Vitamin D and weight bearing exercise for bone health. Reviewed immunizations Reviewed age appropirate screenings. Medicare annual wellness visit, initial 05/16/2019 06/26/2020 Assessment & Plan (06/26/2020 9:24 PM GASTROENTEROLOGY PROFESSOR): Encouraged healthy lifestyle, good nutrition and exercise. [...] 06/26/2020 Assessment & Plan (06/26/2020 9:24 PM GASTROENTEROLOGY PROFESSOR): Updated in office today Assessment & Plan [...] on file Legal Sex Female 3:36 AM GASTROENTEROLOGY PROFESSOR Gender Identity Not on file Sexual Orientation Not on file Obstetrics History Last Filed Vital Signs Vital Sign Reading Time Taken Comments Blood Pressure 128/66 06/26/2020 12:22 PM GASTROENTEROLOGY PROFESSOR Pulse 56 06/26/2020 12:22 PM GASTROENTEROLOGY PROFESSOR Temperature 36.5 C (97.7 F) 06/26/2020 12:22 PM GASTROENTEROLOGY PROFESSOR Respiratory Rate - - Oxygen Saturation 98% 06/26/2020 12:22 PM GASTROENTEROLOGY PROFESSOR Inhaled Oxygen Concentration - - Weight 65.9 kg (145 lb 3.2 oz) 06/26/2020 12:22 PM GASTROENTEROLOGY PROFESSOR Height 154.9 cm (5' 1) 06/26/2020 12:22 PM GASTROENTEROLOGY PROFESSOR Body Mass Index 27.44 06/26/2020 12:22 PM GASTROENTEROLOGY PROFESSOR Plan of Treatment Not on file Insurance [facility] MEDICARE Care Teams It Project Lead Relationship Specialty Start Date End Date Nelly Pond PA [address] [facility] [address] [place] [address] PCP - General Internal Medicine 12/23/18
--- OUTSIDE RECORDS SUMMARY | 2025-01-07 17:57 | XMS_ITS | Encounter Summary ---
Author Organization [facility] Address [address] [place] [address] Phone Care Team Providers Care Barrel Rib Matting Machine Operator Name Role Phone Latrell Lezama MD Primary Care Provider [phone] [phone] Sly Kurtz MD Unavailable [phone] Reason for Visit * Reason Comments Medication Refill Encounter Details Date Type Department Care Team (Late st Contact Info) Description 04/10/2021 Refill [facility] - Neurology [facility] [address] [place] [address] Sly Kurtz MD [address] [place] [address] Medication Refill Social History Tobacco Use Types [...] convulsions documented in this encounter Care Teams Barrel Rib Matting Machine Operator Relationship Specialty Start Date End Date Latrell Lezama MD [address] [place] [address] PCP - General Family Medicine 09/09/15 Sly Kurtz MD [address] [place] [address] Consulting Physician Neurology 09/09/15 06/25/24 documented as of this encounter
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
--- OUTSIDE RECORDS SUMMARY | 2025-01-07 17:57 | XMS_ITS | Clinical Summary ---
Author Organization [facility] Address [address] [place] [address] [place] [address] Care Team Providers Care Hospice Case Manager Name Role Phone Latrell Lezama MD Primary Care Provide r Source Comments [facility],non-owned Affiliates and Associated Physician Practices is amultiple site organization consisting of ambulatory clinics and hospital sitesin [place], [place], [place] and [place]. This disclosure is being madepursuant to the Care Everywhere program and may not contain all information available regarding this patient. Last updated 18.[facility] Allergies No known active allergies Medications [...] Comments Blood Pressure 133/72 06/17/2017 9:02 AM TOWEL STRETCHER Pulse 74 06/17/2017 9:02 AM TOWEL STRETCHER Temperature 36.8 C (98.3 F) 06/11/2017 11:52 AM CDT Respiratory Rate 16 06/11/2017 11:52 AM CDT Oxygen Saturation 100% 06/11/2017 11:52 AM CDT Inhaled Oxygen Concentration - - Weight 59 kg (130 lb) 06/17/2017 9:02 AM TOWEL STRETCHER Height 152.4 cm (5') 06/17/2017 9:02 AM TOWEL STRETCHER Body Mass Index 25.39 06/17/2017 9:02 AM TOWEL STRETCHER Plan of Treatment Health Maintenance Due Date [...] patient's age [place] [address] [place] [address] MEDICARE MEDICAID - [place] Advance Directives * Full Code (Latest Code Status on File) Date Activated Date Inactivated Comments 02/15/2017 9:53 AM 02/18/2017 3:21 PM Care Teams Hospice Case Manager Relationship Specialty Start Date End Date Latrell Lezama MD PCP - General Family Medicine 02/16/17
--- OUTSIDE RECORDS SUMMARY | 2025-01-07 17:57 | XMS_ITS | Encounter Summary ---
Author Organization [facility] Address [address] [place] [address] Phone Care Team Providers Care Copper Etcher Name Role Phone Latrell Lezama MD Primary Care Provider [phone] Sly Kurtz MD Unavailable [phone] Reason for Visit * Reason Comments Medication Refill Encounter Details Date Type Department Care Team (Late st Contact Info) Description 01/15/2020 Refill [facility] - [facility] [address] [place] [address] Sly Kurtz MD [address] [place] [address] Medication Refill Social History Tobacco Use Types [...] on filedocumented in this encounter Care Teams Copper Etcher Relationship Specialty Start Date End Date Latrell Lezama MD [address] [place], [place] [id number] PCP - General Family Medicine 09/09/15 Sly Kurtz MD [address] [place] [address] Consulting Physician Neurology 09/09/15 06/25/24 documented as of this encounter
--- OUTSIDE RECORDS SUMMARY | 2025-01-07 17:57 | XMS_ITS | Data Portability ---
Author Organization [place] [facility] Address [address] [facility] [address] [place] [address] Care Team Providers Care Green Plumber Name Role Phone YOON BERGERON Primary Care Provider [employer] MEDICAL RECORDS OTHER Assessment Encounter Date Assessment Date Assessment LastModified by Organization Details LastModified Time 07/07/2021 07/07/2021 Overview/History : 35 yo female, new pt of and new to provider with a pmhx of seizure disorder, intellectual disability, and heart problems is being seen for nasal congestion, runny nose, sore throat, and intermittent mild cough for past 2 days. Pt is with guardian, who is her father. Pt has not been taking any medication for symptoms. Pt denies any difficulty swallowing. Denies any seasonal allergies. States appetite is normal. She is not drinking enough water. [facility] due [facility] symptoms. Father/guardian did a rapid covid test at home, which was negative. [facility]ational center requires a PCR test to return. Exam: T- 100.2- Pt to take tylenol OTC as directed, R-18, O2 98%, 124/70, HR- 88. Alert and oriented x4. Not acutely ill appearing, no cardiopulmonary distress noted. LS clear bilaterally, no adventitious sounds auscultated. S1S2 auscultated no murmur, RRR. Rest of exam benign. DDx considered, but not limited to: pharyngitis, seasonal allergies, URI Work up/Results: Rapid strep- negative Throat culture sent- will F/U with results. COVID 19 PCR test- will F/U with results. Pt to follow CDC guidelines for quarantining and escalation precautions. Plan/Discussion: Discussed and reviewed patient complaints and clinical findings with patient. * Take OTC tylenol as directed prn pain and fever. * Salt water gargles or throat lozenges for sore throat. * Nasal saline spray and mucinex- use as directed for nasal congestion. * Stay hydrated by drinking plenty of fluids. * F/U in 1-2 days with DH if symptoms persist or worsen. * F/U with PCP in 1-2 days. Plan of care was discussed with patient and family, and are agreeable, all questions answered. Verbalized understanding, evaluated using teach back. Patient to go to ER and/or call 911 if develops worsening or worrisome symptoms including but not limited to fever, SOB, or chest pain, or any sudden or severe developments. . Record will be transmitted to PCP. [email or web address] Not available 07/07/2021 22:36:30 05/08/2022 05/08/2022 Time On Scene with Patient: 00:17:29 [email or web address] Not available 05/08/2022 13:24:13 Plan of Treatment Reminders Order Date Submit Date Provider Last Modified By Organization Details Last Modified Time Details Appointments None recorded. Lab rapid strep group A, throat [address] [place] [address] [facility] [address], [place], [address], 22:33:25 culture, throat 2020 [facility], [address] [place], [address], 19:12:30 unlisted lab - sars-cov-2 virus PCR (covid-19) [address] [place] [facility], [address] [place], [address], 12:22:20 Referral None recorded. Procedures None recorded. Surgeries None recorded. Imaging None recorded. Medication Orders None recorded. Patient TargetsNo targets recorded. Patient Instructions Encounter Date Encounter Id Patient Instructions Last Modified By Organization Details Last Modified Time 07/07/2021 [id number] sore throat: car e instructions Not available 07/07/2021 22:33:22 coronavirus (covid-19): care instructions Not available 07/07/2021 22:33:27 Reason for Referral None Reported. Results Created Date Observation Date Name Description Value Unit Range Abnormal Flag Note LastModifiedBy Organization Detail LastModifiedTime 07/07/20 21 07/07/2021 SARS- COV-2 VIRUS PCR (COVI D-19) equivocal: Equivo temi: False Not Available [facility] [address] [place] [address], [id number], 07/10/2021 06:30:02 07/07/2007/07/2021 SARS- COV-2 VIRUS PCR (COVI D-19) MS2: MS2: 23.440 28437 Not Available [facility] [address] [place] [address], [address], 07/10/2021 06:30:02 07/07/20 21 07/07/2021 SARS- COV-2 VIRUS PCR (COVI D-19) N gene: N gene: Undete rmined Not Available [facility] [address] [place] [address], [address], 07/10/2021 06:30:02 07/07/20 21 07/07/2021 SARS- COV-2 VIRUS PCR (COVI D-19) orf1ab: ORF1ab : Undete rmined Not Available [facility] [address] [place] [address], [id number], 07/10/2021 06:30:02 07/07/20 21 07/07/2021 SARS- COV-2 VIRUS PCR (COVI D-19) result flag: Result Flag: Not Detect ed Not Available [facility] [address] [place] [address], [id number], 07/10/2021 06:30:02 07/07/20 21 07/07/2021 SARS- COV-2 VIRUS PCR (COVI D-19) S gene: S gene: Undete rmined Not Available [facility] [address] [place] [address], [id number], 07/10/2021 06:30:02 07/07/20 21 07/11/2021 CULTU RE, THROA T culture, throat CULTU RE, THROA T Micro Numbe r: [id number] Test Statu s: Final Speci men Sourc e: Not given Speci men Quali ty: Adequ ate Resul t: No oroph aryng eal patho gens recov ered. Not Available [facility] - [address], [place], [address], 07/11/2021 19:12:30 07/07/20 21 07/07/2021 rapid strep group A, throa t Strep A (ref: neg) negati ve Not Available [facility] [address], [place], [address], 07/07/2021 21:58:35 07/07/20 21 07/07/2021 rapid strep group A, throa t Control Visual ized/V alid Not Available [facility] [address], [place], [address], 07/07/2021 21:58:35 07/07/20 21 07/07/2021 rapid strep group A, throa t Location [facility], [address], [place] [address], [id number] Not Available [facility] [address], [place], [address], 07/07/2021 21:58:35 Result Notes None recorded. Procedures Surgical History Date Name Laterality Status Provider Name and Address Organization Details Recorded Time 2 Suture/Staple Removal - DH completed ADITHYA MENG, DEBRA [address], [place], [address], [place] [facility] 05/08/2022 13:28:35 open heart surgery completed [facility] [place] [facility] 05/08/2022 11:49:49 repair of vagus nerve (X) completed [facility] [place] [facility] 05/08/2022 11:50:13 Unlisted px cardiac surgery completed Letharex [place] [facility] 05/08/2022 11:51:13 Imaging Results None recorded. Procedure Notes None recorded. Medical Equipment None Reported. Allergies No known drug allergies Medications Name Sig Start Date Stop Date Status Note LastModified by Organization Details LastModified Time amoxicillin 500 mg capsule 05/08 completed Not Available Not Available Not Available lamotrigine 200 mg tablet TAKE 1 TABLET ORALLY IN THE EVENING 90 DAYS active Not Available Not Available No t Available citalopram 40 mg tablet TAKE 0.5 TABLET BY MOUTH EVERY DAY active Not Available Not Available No t Available cephalexin 500 mg capsule TAKE 1 CAPSULE BY MOUTH TWICE DAILY 05/08 completed Not Available Not Available Not Available oxcarbazepi ne 600 mg tablet GIVE 1.5 TABLETS ORALLY TWICE A DAY 90 DAYS active Not Available Not Available No t Available levetiracet am 750 mg tablet TAKE 1 TABLET ORALLY EVERY 12 HRS 90 DAYS active Not Available Not Available No t Available metoprolol succinate ER 25 mg tablet,exte nded release 24 hr TAKE 1 TABLET BY MOUTH DAILY active Not Available Not Available No t Available ergocalcife rol (vitamin D2) 1,250 mcg (50,000 unit) capsule TAKE 1 CAPSULE BY MOUTH WEEKLY active Not Available Not Available No t Available lamotrigine 100 mg tablet TAKE 1.5 TABLETS ORALLY IN THE MORNING 90 DAYS active Not Available Not Available No t Available Vitamin C active Not Available Not Parul ilable Not Available folic acid active Not Available Not Av ailable Not Available [place] 3 active Not Available Not Avail able Not Available Multi Vitamin active Not Available Not Available Not Available Fycompa 6 mg tablet TAKE 1 TABLET BY MOUTH AT BEDTIME 05/08 completed Not Available Not Available Not Available Fycompa 2 mg tablet TAKE 1 TABLET BY MOUTH DAILY FOR 21 DAYS 05/08 completed Not Available Not Available Not Available ID NOW COVID-19 Test Kit TEST DIRECTED TODAY 05/08 completed Not Available Not Available Not Available Vitals Date Recorded Respiratory rate Heart rate Oxygen saturation Oxygen saturation in Arterial blood by Pulse oximetry Body temperature Systolic blood pressure Diastolic blood pressure Provider Name and Address Organization Details Last Updated DateTime 2 16 /min 81 /min 98 % 98 % 97.3 [degF] 106 mm[Hg] 60 mm[Hg] Not Available [facility] 2 13:18:14 Date Recorded Oxygen saturation Oxygen saturation in Arterial blood by Pulse oximetry Body temperature Heart rate Respiratory rate Systolic blood pressure Diastolic blood pressure Provider Name and Address Organization Details Last Updated DateTime 1 98 % 98 % 100.2 [degF] 88 /min 18 /min 124 mm[Hg] 70 mm[Hg] Not Available [facility] 1 21:51:34 Social History None recorded. Functional Status Question Answer Note LastModified by Organizat ion Details LastModified Time Do you use any illicit or recreational drugs? No Information not available 07/07/2021 Do you or have you ever used any other forms of tobacco or nicotine? No Information not available 07/07/2021 What is your level of alcohol consumption? Occasional Information not available 07/07/2021 Mental Status None recorded. Family History Relationship Description Onset Age of this Age Resolved Age Notes LastModified by Organization Details LastModified Time Father Hypertensive disorder [email or web address] Not available 04/11 11:50:41 Brother Malignant neoplastic disease [email or web address] Not available 04/11 11:50:54 Maternal Aunt Malignant neoplastic disease [email or web address] Not available 04/11 11:50:54 Notes:05/08/22 Medical History Condition Response Diabetes N Coronary Artery Disease N CHF N Parkinson's Disease N Cancer N Dementia N Stroke N Asthma N COPD N Depression N Hypothyroidism N High Cholesterol N Rheumatoid Arthritis N Pulmonary Embolism N Hypertension N Osteoporosis N A-fib N Kidney Disease N Gynecological HistoryNo gynecological history recorded. Obstetrics History GPAL:G 0 P 0 0 0 0 Past Encounters Encounter ID Performer Location Encounter Start Date Encounter Closed Date Diagnosis/Indication Diagnosis SNOMED-CT Code Diagnosis ICD10 Code Diagnosis Note [id number] DANIAL MENDIOLA NP [facility] [address] [place] [address] 07/07/2021 20:35:22 07/07/2021 22:40:53 Exposure to SARS-CoV-2 407626424 Z20.822 Viral pharyngitis 417476 7 B34.9 [id number] ADITHYA MENG, ASSISTANT TO THE VICE PRESIDENT [facility] [address] [place] [address] 05/08/2022 11:44:24 05/11/2022 07:08:27 Removal of antione 78595995 Z48.02 stable patient scarlet. well. No problems 1 staple removed. Laceration of head 16841 8000 S01.91XD healed. Health Concerns Section Related Observation LastModified by Organization Detai ls LastModified Time None Recorded Concern Status LastModified by Organization Details LastModified Time None Recorded Advance Directives Directive None Recorded Payers Insurance Date Sequence Insurance Name Policy Number Policy Eden Covered Member ID Eden Member ID Guarantor Name 07/14/2021 1 *SELF PAY* Minerva Obando [id number] Minerva Obando 07/14/2021 1 [place] [id number] Minerva Obando [id number] Minerva Obando 05/11/2022 1 [facility] (MEDICARE REPLACEMENT/AD VANTAGE - HMO) [facility] Minerva Obando [id number] Minerva Obando 07/14/2021 1 [facility] MEDICARE [facility] (MEDICARE REPLACEMENT HMO) [facility]78 Minerva Obanod [id number] Minerva Obando Notes Date Note Type Note Provider Name and Address Organization Details Recorded Time 07/07/2021 text/html 35 yo female, ne w pt of and new to provider with a pmhx of seizure disorder, intellectual disability, and heart problems is being seen for nasal congestion, runny nose, sore throat, and intermittent mild cough for past 2 days. Pt is with guardian, who is her father. Pt has not been taking any medication for symptoms. Pt denies any difficulty swallowing. Denies any seasonal allergies. States appetite is normal. She is not drinking enough water. [facility] from [facility] due to symptoms. Father/guardian did a rapid covid test at home, which was negative. [facility] requires a PCR test to return. Pt is ambulatory without difficulty and is in NAD. Denies any known exposure to anyone diagnosed with COVID 19.Father states seizures are controlled- Last seizure was 10/27.PT was vaccinated for COVID 19. DANIAL MENDIOLA, DEBRA [address], [place], [address], [place] [facility] 07/07/2021 22:37:16 05/08/2022 text/html Pleasant 36 y/o female not new to . Patient has intellectual disability, her niece is present. Patient has one staple to top of head, accidentally hit head or pulled big chunk of hair per niece. Happened about 10 days ago. She is requesting that we remove this staple She denies any other concerns.Denies any s/s of infection to wound. ADITHYA MENG, DEBRA [address], [place], [address], [place] [facility] 05/08/2022 13:30:03 OBGyn Episode No OBEpisode recorded.
--- OUTSIDE RECORDS SUMMARY | 2025-01-07 17:57 | XMS_ITS | Encounter Summary ---
Author Organization [facility] Address [address] [place] [address] Phone Care Team Providers Care Real Estate Internship Name Role Phone Latrell Lezama MD Primary Care Provider [phone] Sly Kurtz MD Unavailable [phone] Reason for Visit * Reason Comments Medication Refill Encounter Details Date Type Department Care Team (Late st Contact Info) Description 09/22/2020 Refill [facility] - Neurology [facility] [address] [place] [address] Sly Kurtz MD [address] [place] [id number] Medication Refill Social History Tobacco Use Types [...] on filedocumented in this encounter Care Teams Real Estate Internship Relationship Specialty Start Date End Date Latrell Lezama MD [address] [place], [place] [id number] PCP - General Family Medicine 09/09/15 Sly Kurtz MD [address] [place] [address] Consulting Physician Neurology 09/09/15 06/25/24 documented as of this encounter
--- OUTSIDE RECORDS SUMMARY | 2025-01-07 17:57 | XMS_ITS | Referral Summary ---
Author Organization [facility] [place] [address] [facility] Address [address] [place] [address] Care Team Providers Care Clinical Biostatistician Name Role Phone Nelly Pond Primary Care Provider [phone] Allergies No known active allergies Medications OXcarbazepine [...] 06/26/2020 Assessment & Plan (06/26/2020 12:26 PM HEAD BANQUET WAITER/WAITRESS): Weight/BMI is in healthy range. Continue healthy lifestyle to maintain. Need for influenza vaccination 06/26/2020 Assessment & Plan (06/26/2020 9:25 PM HEAD BANQUET WAITER/WAITRESS): Updated in office today Seizure disorder 05/12/2019 Overview (05/16/2019): VNS in place Continue with Neurology Assessment & Plan (06/26/2020 9:26 PM HEAD BANQUET WAITER/WAITRESS): Continue per neurology Intellectual disability 05/12/2019 Assessment & Plan (05/16/2019 8:58 PM CDT): Still lives with father who production administrative assistant with her care/coordination Mild episode of recurrent major depressive disor jacob 05/12/2019 Overview (05/12/2019): Mother 2013 lung cancer and still grieving Assessment & Plan (06/26/2020 9:24 PM HEAD BANQUET WAITER/WAITRESS): Neurologist started her on Celexa Assessment & Plan (05/16/2019 8:58 PM CDT): Stable today 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 Vilaltoro for management. History of open heart surgery 03/13/2015 Common truncus arteriosus 02/27/2015 Assessment & Plan (06/26/2020 9:24 PM HEAD BANQUET WAITER/WAITRESS): See aortic valve disease Assessment & Plan (05/16/2019 8:57 PM CDT): Refer back to Dr. Villatoro for management. Aortic valve disease 02/27/2015 Assessment & Plan (06/26/2020 9:23 PM HEAD BANQUET WAITER/WAITRESS): Provided letter from Dr. Villatoro's office for [...] 06/30/2021 Assessment & Plan (06/26/2020 9:26 PM HEAD BANQUET WAITER/WAITRESS): Encouraged healthy lifestyle, good nutrition and exercise. Encouraged Calcium and Vitamin D and weight bearing exercise for bone health. Reviewed immunizations Reviewed age appropirate screenings. Medicare annual wellness visit, initial 05/16/2019 06/26/2020 Assessment & Plan (06/26/2020 9:24 PM HEAD BANQUET WAITER/WAITRESS): Encouraged healthy lifestyle, good nutrition and exercise. [...] 06/26/2020 Assessment & Plan (06/26/2020 9:24 PM HEAD BANQUET WAITER/WAITRESS): Updated in office today Assessment & Plan [...] on file Legal Sex Female 3:36 AM HEAD BANQUET WAITER/WAITRESS Gender Identity Not on file Sexual Orientation Not on file Last Filed Vital Signs Vital Sign Reading Time Taken Comments Blood Pressure 128/66 06/26/2020 12:22 PM HEAD BANQUET WAITER/WAITRESS Pulse 56 06/26/2020 12:22 PM HEAD BANQUET WAITER/WAITRESS Temperature 36.5 C (97.7 F) 06/26/2020 12:22 PM HEAD BANQUET WAITER/WAITRESS Respiratory Rate - - Oxygen Saturation 98% 06/26/2020 12:22 PM HEAD BANQUET WAITER/WAITRESS Inhaled Oxygen Concentration - - Weight 65.9 kg (145 lb 3.2 oz) 06/26/2020 12:22 PM HEAD BANQUET WAITER/WAITRESS Height 154.9 cm (5' 1) 06/26/2020 12:22 PM HEAD BANQUET WAITER/WAITRESS Body Mass Index 27.44 06/26/2020 12:22 PM HEAD BANQUET WAITER/WAITRESS Plan of Treatment [place] [address] [facility] MEDICARE [facility] Address: [address] [address] [place] [address] Care Teams Clinical Biostatistician Relationship Specialty Start Date End Date Nelly Pond PA [address] [facility] [address] [place] [address] PCP - General Internal Medicine 12/23/18
--- OUTSIDE RECORDS SUMMARY | 2025-01-07 17:57 | XMS_ITS | Encounter Summary ---
Author Organization [facility] Address [address] [place] [address] Phone Care Team Providers Care Pile Driving Nozzleman Name Role Phone Latrell Lezama MD Primary Care Provider [phone] Sly Kurtz MD Unavailable [phone] Reason for Visit * Reason Comments Medication Refill Encounter Details Date Type Department Care Team (Late st Contact Info) Description 10/02/2020 Refill [facility] - Neurology [facility] [address] [place] [address] Sly Kurtz MD [address] [place] [id number] Medication Refill Social History Tobacco Use Types [...] on filedocumented in this encounter Care Teams Pile Driving Nozzleman Relationship Specialty Start Date End Date Latrell Lezama MD [address] [place], [place] [id number] PCP - General Family Medicine 09/09/15 Sly Kurtz MD [address] [place] [address] Consulting Physician Neurology 09/09/15 06/25/24 documented as of this encounter
--- OUTSIDE RECORDS SUMMARY | 2025-01-07 17:57 | XMS_ITS | Encounter Summary ---
Author Organization [facility] Address [address] [place] [address] Phone Care Team Providers Care Delinquent Account Clerk Name Role Phone Nelly Pond Primary Care Provider [phone] Encounter Details Date Type Department Care Team [...] on file Legal Sex Female 3:36 AM SOFTWARE TEST TECHNICIAN Gender Identity Not on file Sexual Orientation [...] on filedocumented in this encounter Care Teams Delinquent Account Clerk Relationship Specialty Start Date End Date Nelly Pond PA [address] [place] [address] PCP - General Internal Medicine 12/23/18 documented as of this encounter
--- OUTSIDE RECORDS SUMMARY | 2025-01-07 17:58 | XMS_ITS | Clinical Summary ---
Author Organization [facility] Address [address] [place] [address] Care Team Providers Care Envelope Machine Operator Name Role Phone Unavailable Primary Care Provider Unavailabl e Allergies No known active allergies Medications carBAMazepine (TEGRETOL) 100 mg tablet Take 1 tablet by mouth 1 (one) time each day. Active lamoTRIgine (LaMICtal XR) 100 mg tablet extended release 24hr 24 hr tablet Take 1 tablet by mouth 1 (one) time each day. Active perampaneL (Fycompa) 6 mg tablet Take 1 tablet by mouth 1 (one) time each day. Active levETIRAcetam (KEPPRA) 750 mg tablet 06/16/2022 Active metoprolol succinate (TOPROL-XL) 25 mg 24 hr tablet Take 25 mg by mouth 1 (one) time each day. 05/07/2022 Active OXcarbazepine (TRILEPTAL) 600 mg tablet 06/16/2022 Active citalopram (CeleXA) 40 mg tablet TAKE 0.5 TABLET BY MOUTH EVERY DAY 04/10/2022 Active aspirin 81 mg tablet Maintenance , Refills: 0 11/30/2022 Active Active Problems Problem Noted Date Diagnosed Date Epilepsy 05/25/2024 Intellectual disability 1985 Social History Tobacco Use Types Packs/Day Years Used Date Smoking Tobacco: Never Smokeless Tobacco: Never Alcohol Use Standard Drinks/Week Comments Yes 0 (1 standard drink = 0.6 oz pur e alcohol) Rarely Comments Unknown Sex and Gender Information Value Date Recorded Sex Assigned at Not on file Legal Sex Female 12:33 PM PDT Gender Identity Not on file Sexual Orientation Not on file Last Filed Vital Signs Vital Sign Reading Time Taken Comments Blood Pressure 126/69 06/16/2024 3:08 PM PST Pulse 81 06/16/2024 3:08 PM PST Temperature - - Respiratory Rate - - Oxygen Saturation - - Inhaled Oxygen Concentration - - Weight - - Height - - Body Mass Index - - Plan of Treatment Health Maintenance Due Date Last Done Comments Periodontal Maintenance 1985 Dental Oral Exam 12/30/2023 06/30/2023, 06/2022, 05/15/2021 Dental X-Ray: Bitewings 12/30/2023 06/30/2023 Dental X-Ray: Full Mouth 05/17/2024 05/16/2021 Scaling and Root Planing 07/22/2025 07/08/2023 Dental CBCT 05/25/2027 05/25/2024, 05/15/2021 Dental X-Ray: Panoramic 05/27/2027 05/26/2024, 05/25 Meningococcal B Vaccine Aged Out No l onger eligible based on patient's age to complete this topic Procedures Procedure Name Priority Date/Time Associated Diagnosis Comments CONE BEAM CT CAPTURE AND INTERPRETATION WITH FIELD OF VIEW OF BOTH JAWS; WITH OR WITHOUT CRANIUM Routine 05/25/2024 4:00 PM PDT PANORAMIC RADIOGRAPHIC IMAGE Routine 05/25/2024 4:00 PM PDT LR PERIODONTAL SCALING AND ROOT PLANING - FOUR OR MORE TEETH PER QUADRANT Routine 07/08/2023 4:00 PM PST PERIODIC ORAL EVALUATION - ESTABLISHED PATIENT Routine 06/30/2023 11:00 AM PST from Last 3 Months or Most Recently Relevant to Health Maintenance Insurance [facility] PPO
--- OUTSIDE RECORDS SUMMARY | 2025-01-07 17:58 | XMS_ITS | Encounter Summary ---
Author Organization [facility] Address [address] [facility] [place] [address] Phone Care Team Providers Care Curriculum And Instruction Director Name Role Phone Latrell Lezama MD Primary Care Provider [phone] Sly Kurtz MD Unavailable [phone] Reason for Visit * Reason Comments Medication Refill Encounter Details Date Type Department Care Team (Late st Contact Info) Description 02/15/2020 Refill [facility] - [facility]rology [facility] [address] [place] [address] Sly Kurtz MD [address] [place] [id number] Medication Refill Social History Tobacco Use Types [...] on filedocumented in this encounter Care Teams Curriculum And Instruction Director Relationship Specialty Start Date End Date Latrell Lezama MD [address] [place] [address] PCP - General Family Medicine 09/09/15 Sly Kurtz MD [address] [place] [address] Consulting Physician Neurology 09/09/15 06/25/24 documented as of this encounter
--- OUTSIDE RECORDS SUMMARY | 2025-01-07 17:58 | XMS_ITS | Encounter Summary ---
Author Organization [facility] Address [address] [place] [address] Phone Care Team Providers Care Hplc Chemist Name Role Phone Latrell Lezama MD Primary Care Provider [phone] Sly Kurtz MD Unavailable [phone] Reason for Visit * Reason Comments Medication Refill Encounter Details Date Type Department Care Team (Late st Contact Info) Description 03/25/2020 Refill [facility] - Neurology [facility] [address] [place] [address] Sly Kurtz MD [address] [place] [address] Medication Refill Social History Tobacco Use Types [...] on filedocumented in this encounter Care Teams Hplc Chemist Relationship Specialty Start Date End Date Latrell Lezama MD [address] [place], [place] [id number] PCP - General Family Medicine 09/09/15 Sly Kurtz MD [address] [place] [address] Consulting Physician Neurology 09/09/15 06/25/24 documented as of this encounter
--- OUTSIDE RECORDS SUMMARY | 2025-01-07 17:58 | XMS_ITS ---
Author Organization [facility] Address [address] [place] [address] Care Team Providers Care Director Orange Name Role Phone ChrisIndiaDillon Unavailable [phone] Lea Mcgovern Unavailable [phone] REASON FOR VISIT Annual Encounters Encounter Location Date Provider Diagnosis skye Burgos [address] [place] [address] 01/02/2025 Lea Mcgovern Plan Of Treatment No Information Progress Notes * Elie OBANDOi LDOB:1985 (39 yo F)Acc No.[id number]:01/02/2025 Patient: Minerva BRIGGS Provider: Natividad Mcgovern P.A.-C :1985 A ge:39 Y S ex:Female Date:01/02/2025 Address:[facility] [address], [place] Subjective: * Chief Complaints: * 1 . Annual. * Medical History: Objective: * Vitals: Assessment: Plan: * Treatment: * * Electronic signature of ELANA Rai on 01/07/2025 at 03:57 PM PDT Sign off status: Pending * Provider: Natividad Mcgovern P.A.-C Date: 0 01/02/2025 Generated for Bari bueno/Neil/eTransmitting on: 0 01/07/2025 03:57 PM PDT
--- OUTSIDE RECORDS SUMMARY | 2025-01-07 17:58 | XMS_ITS | Continuity of Care Document ---
Author Organization [facility]. If a dditional information is needed, contact Health Information Management at [phone] Address [address] [place] [address] Phone Care Team Providers Care Igniter Capper Name Role Phone Unavailable Unavailable Unavailable Unavailable Unavailable Unavailable Unavailable Unavailable Unavailable Unavailable Unavailable Unavailable Unavailable Unavailable Unavailable Unavailable Unavailable Unavailable Problems Encounter for removal of sut ures Onset:22-Jun-2021 Localization-related (focal) (partial) symptomatic epilepsy and epileptic syndromes with simple partial seizures Mental Status Cognitive function finding 20-Jul-2022 Functional Status Functional finding 21-Jul-2022 Allergies and Adverse Reactions No Known Allergies(Allergy) Onset: 24-Feb-2022 No Known Allergies(Allergy) Medications aspirin 325 MG Oral Tablet;3 25 MILLIGRAM PO DAILY Start:21-Jul-2022 Comments:325 MG PO DAILY midazolam 1 MG/ML Injectable Solution;Provider Administration Instructions: Note: IV INFUSION of this drug isrestricted by policy to ICU anddesignated procedural areas Quantity:1 Start:20-Jul-2022 Status:Discontinued Comments:Provider Administration Instructions: Note: IV INFUSION of this drug isrestricted by policy to ICU anddesignated procedural areas 1 ML ePHEDrine sulfate 50 MG /ML Injection;Provider Administration Instructions: Note: IV administration of this drug isrestricted by policy to ICU areas only Quantity:1 Start:20-Jul-2022 Status:Discontinued Comments:Provider Administration Instructions: Note: IV administration of this drug isrestricted by policy to ICU areas only heparin sodium, porcine 1000 UNT/ML Injectable Solution;Provider Administration Instructions:CAUTION: Heparin concentration may vary. Double-check toverify correct dose. Quantity:1 Start:20-Jul-2022 Status:Discontinued Comments:Provider Administration Instructions:CAUTION: Heparin concentration may vary. Double-check toverify correct dose. ANESTHESIA TRAY_LTA MZ1 Quantity:1 Start:20-Jul-2022 Status:Discontinued lidocaine hydrochloride 0.02 MG/MG Topical Gel Quantity:1 Start:20-Jul-2022 rocuronium bromide 10 MG/ML Injectable Solution;Provider Administration Instructions: Vented Patients Only %%%%% NEUROMUSCULAR BLOCKING AGENT %%%%%%Discontinue paralytic upon extubation Note: IV administration of this drug isrestricted by policy to ICU areas onlyon ventilated patients Quantity:1 Start:20-Jul-2022 Status:Discontinued Comments:Provider Administration Instructions: Vented Patients Only %%%%% NEUROMUSCULAR BLOCKING AGENT %%%%%%Discontinue paralytic upon extubation Note: IV administration of this drug isrestricted by policy to ICU areas onlyon ventilated patients midazolam 1 MG/ML Injectable Solution;Provider Administration Instructions: Note: IV INFUSION of this drug isrestricted by policy to ICU anddesignated procedural areas Quantity:1 Start:20-Jul-2022 Status:Discontinued Comments:Provider Administration Instructions: Note: IV INFUSION of this drug isrestricted by policy to ICU anddesignated procedural areas 20 ML propofol 10 MG/ML Inje ction [Diprivan];Provider Administration Instructions:* Discard tubing and any unused portion after12 hours. (USE ORIGINAL CONTAINER ONLY, CHANGESET EMULSION Q 6 H IF TRANSFERRED TO ANOTHERCONTAINER)CAUTION: due to short half-life of propofol, pleaseinsure adequate supply is on hand to avoid runningout of infusion ! Note: IV administration of this drug isrestricted by policy to ICU areas only Quantity:1 Start:20-Jul-2022 Comments:Provider Administration Instructions:* Discard tubing and any unused portion after12 hours. (USE ORIGINAL CONTAINER ONLY, CHANGESET EMULSION Q 6 H IF TRANSFERRED TO ANOTHERCONTAINER)CAUTION: due to short half-life of propofol, pleaseinsure adequate supply is on hand to avoid runningout of infusion ! Note: IV administration of this drug isrestricted by policy to ICU areas only 1 ML dexAMETHasone phosphate 4 MG/ML Injection;Provider Administration Instructions:Please notify Pharmacy to change to ORAL therapywhen Patient can tolerate the oral medication. Quantity:1 Start:20-Jul-2022 Status:Discontinued Comments:Provider Administration Instructions:Please notify Pharmacy to change to ORAL therapywhen Patient can tolerate the oral medication. ondansetron 2 MG/ML Injectab le Solution [Zofran];Provider Administration Instructions:OBTAIN FROM [facility] FOR ALL EHSAN AND PRN DOSES!!Single doses may be administered IV Push undiluted over atleast 30 seconds preferably over 2 to 5 minutes Quantity:1 Start:20-Jul-2022 Status:Discontinued Comments:Provider Administration Instructions:OBTAIN FROM P[facility] FOR ALL EHSAN AND PRN DOSES!!Single doses may be administered IV Push undiluted over atleast 30 seconds preferably over 2 to 5 minutes 2 ML fentaNYL 0.05 MG/ML Injection;Provider Administration Instructions:*All PAIN SCALE assessments must be documented in [employer] Note: IV administration of this drug isrestricted by policy to ICU anddesignated procedural areas Quantity:1 Start:20-Jul-2022 Status:Discontinued Comments:Provider Administration Instructions:*All PAIN SCALE assessments must be documented in [employer] Note: IV administration of this drug isrestricted by policy to ICU anddesignated procedural areas iopamidol Quantity:1 Start:20-Jul-2022 500 ML heparin sodium, porci ne 2 UNT/ML Injection Quantity:1 Start:20-Jul-2022 [facility];1 T ABLET PO DAILY Start:20-Jul-2022 Comments:1 TAB PO DAILY OXcarbazepine 600 MG Oral Ta blet;600 MILLIGRAM PO DAILY Start:20-Jul-2022 Comments:600 MG PO DAILY lamoTRIgine 100 MG Oral Tabl et;100 MILLIGRAM PO DAILY Start:20-Jul-2022 Comments:100 MG PO DAILY levETIRAcetam 750 MG Oral Ta blet;750 MILLIGRAM PO BID Start:20-Jul-2022 Comments:750 MG PO BID lamoTRIgine 200 MG Oral Tabl et [LaMICtal];200 MILLIGRAM PO BEDTIME Start:20-Jul-2022 Comments:200 MG PO BEDTIME citalopram 40 MG Oral Tablet [CeleXA];40 MILLIGRAM PO DAILY Start:20-Jul-2022 Comments:40 MG PO DAILY metoprolol tartrate 25 MG Or al Tablet;25 MILLIGRAM PO DAILY Start:20-Jul-2022 Comments:25 MG PO DAILY cholecalciferol 0.325 MG Ora l Capsule [Maximum D3];250 MICROGRAM PO DAILY Start:20-Jul-2022 Comments:250 MCG PO DAILY omega-3 acid ethyl esters (U SP) 1000 MG Oral Capsule [Lovaza];1 CAPSULE PO DAILY Start:20-Jul-2022 Comments:1 CAP PO DAILY iopamidol Quantity:1 Start:24-Feb-2022 Status:Discontinued neostigmine methylsulfate 1 MG/ML Injectable Solution Quantity:1 Start:24-Feb-2022 Status:Discontinued 1 ML glycopyrrolate 0.2 MG/M L Injection Quantity:1 Start:24-Feb-2022 Status:Discontinued 2 ML dexmedeTOMIDine 0.1 MG/ ML Injection [Precedex] Quantity:1 Start:24-Feb-2022 Status:Discontinued heparin sodium, porcine 1000 UNT/ML Injectable Solution;Provider Administration Instructions:CAUTION: Heparin concentration may vary. Double-check toverify correct dose. Quantity:1 Start:24-Feb-2022 Status:Discontinued Comments:Provider Administration Instructions:CAUTION: Heparin concentration may vary. Double-check toverify correct dose. 1 ML dexAMETHasone phosphate 4 MG/ML Injection;Provider Administration Instructions:Please notify Pharmacy to change to ORAL therapywhen Patient can tolerate the oral medication. Quantity:1 Start:24-Feb-2022 Status:Discontinued Comments:Provider Administration Instructions:Please notify Pharmacy to change to ORAL therapywhen Patient can tolerate the oral medication. ondansetron 2 MG/ML Injectab le Solution [Zofran];Provider Administration Instructions:[This medication is for nausea and vomiting, if youexperience side effects such as headache, drowsiness,dizziness, fatigue, or constipation, please let me know.]OBTAIN FROM [employer] FOR ALL EHSAN AND PRN DOSES!!Single doses may be administered IV Push undiluted over atleast 30 seconds preferably over 2 to 5 minutes Quantity:1 Start:24-Feb-2022 Status:Discontinued Comments:Provider Administration Instructions:[This medication is for nausea and vomiting, if youexperience side effects such as headache, drowsiness,dizziness, fatigue, or constipation, please let me know.]OBTAIN FROM [employer] FOR ALL EHSAN AND PRN DOSES!!Single doses may be administered IV Push undiluted over atleast 30 seconds preferably over 2 to 5 minutes lidocaine hydrochloride 20 M G/ML Injectable Solution Quantity:1 Start:24-Feb-2022 Status:Discontinued rocuronium bromide 10 MG/ML Injectable Solution;Provider Administration Instructions: Vented Patients Only %%%%% NEUROMUSCULAR BLOCKING AGENT %%%%%%Discontinue paralytic upon extubation Note: IV administration of this drug isrestricted by policy to ICU areas onlyon ventilated patients Quantity:1 Start:24-Feb-2022 Comments:Provider Administration Instructions: Vented Patients Only %%%%% NEUROMUSCULAR BLOCKING AGENT %%%%%%Discontinue paralytic upon extubation Note: IV administration of this drug isrestricted by policy to ICU areas onlyon ventilated patients 20 ML propofol 10 MG/ML Inje ction [Diprivan];Provider Administration Instructions:* Discard tubing and any unused portion after12 hours. (USE ORIGINAL CONTAINER ONLY, CHANGESET EMULSION Q 6 H IF TRANSFERRED TO ANOTHERCONTAINER)CAUTION: due to short half-life of propofol, pleaseinsure adequate supply is on hand to avoid runningout of infusion ! Note: IV administration of this drug isrestricted by policy to ICU areas only Quantity:1 Start:24-Feb-2022 Comments:Provider Administration Instructions:* Discard tubing and any unused portion after12 hours. (USE ORIGINAL CONTAINER ONLY, CHANGESET EMULSION Q 6 H IF TRANSFERRED TO ANOTHERCONTAINER)CAUTION: due to short half-life of propofol, pleaseinsure adequate supply is on hand to avoid runningout of infusion ! Note: IV administration of this drug isrestricted by policy to ICU areas only 2 ML fentaNYL 0.05 MG/ML Injection;Provider Administration Instructions:*All PAIN SCALE assessments must be documented in [facility] Note: IV administration of this drug isrestricted by policy to ICU anddesignated procedural areas Quantity:1 Start:24-Feb-2022 Status:Discontinued Comments:Provider Administration Instructions:*All PAIN SCALE assessments must be documented in [facility] Note: IV administration of this drug isrestricted by policy to ICU anddesignated procedural areas Unknown Medication;Unknown M edication Comments:Unknown Medication Unknown Medication;Unknown M edication Comments:Unknown Medication Social History Smoking Status Never smoked tobacco Recorded: 20-Jul-2022 Encounters Ambulatory 26-Apr-2022 RUTH MARTINS (Attending) [place] [facility] 22-Jun-2021 CAITY BURGOS (Attending) [place] [facility] 21-Jun-2021 JORGE REDDING (Attending) [place]
--- OUTSIDE RECORDS SUMMARY | 2025-01-07 17:58 | XMS_ITS | Encounter Summary ---
Author Organization [facility] Address [address] [place] [address] Care Team Providers Care Chemical Treatment Operator Name Role Phone Unavailable Primary Care Provider Unavailabl e Prior Encounters Date Type Department Care Team Description 06/16/2024 3:00 PM PST Office Visit [facility] [address], [place] [place] [phone] Blanca Goel, BRENDA 06/15/2024 1:00 PM PST Office Visit [facility] [address], [place] [place] [phone] Js Beverly, DDS 05/25/2024 4:00 PM PDT Office Visit [facility] [address], [place] [place] [phone] Blanca Goel, BRENDA 07/08/2023 Travel 07/08/2023 4:00 PM PST Office Visit [facility] [address], [place] [place] [phone] Clifford Dennis, [facility] 06/30/2023 11:00 AM PST Office Visit [facility] [address], [place] [place] [phone] Blanca Goel DMD 06/19/2022 4:00 PM PST Office Visit [facility] [address], [place] [place] [phone] Maximo Vaughan, BRENDA 06/12/2021 Travel 06/12/2021 5:00 PM PDT Office Visit [facility] [address], [place] [place] [phone] Blanca Goel DMD 05/15/2021 Travel 05/15/2021 3:00 PM PDT Office Visit [facility] [address], [address] [place] [phone] Blanca Goel, DMD Last Filed Vital Signs Vital Sign Reading Time Taken Comments Blood Pressure 126/69 06/16/2024 3:08 PM PST Pulse 81 06/16/2024 3:08 PM PST Temperature - - Respiratory Rate - - Oxygen Saturation - - Inhaled Oxygen Concentration - - Weight - - Height - - Body Mass Index - - Plan of Treatment Not on file Procedures Procedure Name Priority Date/Time Associated Diagnosis Comments 15 [facility] PROF JAYE CRTSY Routine 06/16/20 3:00 PM PST NC X-RAY Routine 06/16/2024 3:00 PM PST 15 CEMENT CROWN Routine 06/16/2024 3:00 PM PST 15 CORE BUILDUP, INCLUDING ANY PINS WHEN REQUIRED Routine 06/16/2024 3:00 PM PST 15 TREATMENT OF ROOT CANAL OBSTRUCTION; NON-SURGICAL ACCESS Routine 06/15/2024 1:00 PM PST DUNGEON MASTER CONSULT Routine 06/15/2024 1 :00 PM PST 15 PULP VITALITY TESTS Routine 1:00 PM PST NC X-RAY Routine 06/15/2024 1:00 PM PST 15 ENDODONTIC THERAPY, MOLAR TOOTH (EXCLUDING FINAL HINDU) Routine 06/15/2024 1:[address] PM [address] [address] CAPTURE AND INTERPRETATION WITH FIELD OF VIEW OF BOTH JAWS; WITH OR WITHOUT CRANIUM Routine 05/25/2024 4:00 PM PDT PANORAMIC RADIOGRAPHIC IMAGE Routine 05/25/2024 4:00 PM PDT SINGLE X-RAY Routine 05/25/2024 4:00 PM PDT LIMITED ORAL EVALUATION - PROBLEM FOCUSED Routine 05/25/2024 4:00 PM PDT ADDITIONAL X-RAY Routine 05/25/2024 4:00 PM PDT BITEWING - SINGLE RADIOGRAPHIC IMAGE Routine 05/25/2024 4:00 PM PDT ORAL HYGIENE INSTRUCTIONS Routine 2022 4:00 PM PST TOPICAL APPLICATION OF FLUORIDE VARNISH Routine 07/08/2023 4:00 PM PST LR PERIODONTAL SCALING AND ROOT PLANING - FOUR OR MORE TEETH PER QUADRANT Routine 07/08/2023 4:00 PM PST ORAL HYGIENE INSTRUCTIONS Routine 2022 4:00 PM PST INTRAORAL PHOTO Routine 06/30/2023 11:00 AM PST INTRAORAL PHOTO Routine 06/30/2023 11:00 AM PST INTRAORAL PHOTO Routine 06/30/2023 11:00 AM PST INTRAORAL PHOTO Routine 06/30/2023 11:00 AM PST BITEWINGS - FOUR RADIOGRAPHIC IMAGES Routine 06/30/2023 11:00 AM PST ADDITIONAL X-RAY Routine 06/30/2023 11:0 0 AM PST ADDITIONAL X-RAY Routine 06/30/2023 11:0 0 AM PST ADDITIONAL X-RAY Routine 06/30/2023 11:0 0 AM PST ADDITIONAL X-RAY Routine 06/30/2023 11:0 0 AM PST PERIODIC ORAL EVALUATION - ESTABLISHED PATIENT Routine 06/30/2023 11:00 AM PST ADDITIONAL X-RAY Routine 06/30/2023 11:0 0 AM PST SINGLE X-RAY Routine 06/30/2023 11:00 AM PST ORAL HYGIENE INSTRUCTIONS Routine 2021 4:00 PM PST TOPICAL APPLICATION OF FLUORIDE VARNISH Routine 06/19/2022 4:00 PM PST PROPHYLAXIS - ADULT Routine 06/19/2022 4 :00 PM PST INTRAORAL PHOTO Routine 06/19/2022 4:00 PM PST INTRAORAL PHOTO Routine 06/19/2022 4:00 PM PST INTRAORAL PHOTO Routine 06/19/2022 4:00 PM PST INTRAORAL PHOTO Routine 06/19/2022 4:00 PM PST ADDITIONAL X-RAY Routine 06/19/2022 4:00 PM PST BITEWINGS - FOUR RADIOGRAPHIC IMAGES Routine 06/19/2022 4:00 PM PST SINGLE X-RAY Routine 06/19/2022 4:00 PM PST PERIODIC ORAL EVALUATION - ESTABLISHED PATIENT Routine 06/19/2022 4:00 PM PST ADDITIONAL X-RAY Routine 06/19/2022 4:00 PM PST ADDITIONAL X-RAY Routine 06/19/2022 4:00 PM PST ADDITIONAL X-RAY Routine 06/19/2022 4:00 PM PST ADDITIONAL X-RAY Routine 06/19/2022 4:00 PM PST 15 MOB RESIN-BASED COMPOSITE - THREE SURFACES, POSTERIOR Routine 06/12/2021 5:00 PM PDT 12 MOD RESIN-BASED COMPOSITE - THREE SURFACES, POSTERIOR Routine 06/12/2021 5:00 PM PDT 13 MO RESIN-BASED COMPOSITE - TWO SURFACES, POSTERIOR Routine 06/12/2021 5:00 PM PDT 11 DL RESIN-BASED COMPOSITE - TWO SURFACES, ANTERIOR Routine 06/12/2021 5:00 PM PDT 18 O RESIN-BASED COMPOSITE - ONE SURFACE, POSTERIOR Routine 06/12/2021 5:00 PM PDT 32 O RESIN-BASED COMPOSITE - ONE SURFACE, POSTERIOR Routine 06/12/2021 5:00 PM PDT 4 MOD RESIN-BASED COMPOSITE - THREE SURFACES, POSTERIOR Routine 06/12/2021 5:00 PM PDT 31 O RESIN-BASED COMPOSITE - ONE SURFACE, POSTERIOR Routine 06/12/2021 5:00 PM PDT ORAL HYGIENE INSTRUCTIONS Routine 2020 3:00 PM PDT TOPICAL APPLICATION OF FLUORIDE VARNISH Routine 05/15/2021 3:00 PM PDT PROPHYLAXIS - ADULT Routine 05/15/2021 3 :00 PM PDT INTRAORAL PHOTO Routine 05/15/2021 3:00 PM PDT INTRAORAL PHOTO Routine 05/15/2021 3:00 PM PDT INTRAORAL PHOTO Routine 05/15/2021 3:00 PM PDT INTRAORAL PHOTO Routine 05/15/2021 3:00 PM PDT ADDITIONAL X-RAY Routine 05/15/2021 3:00 PM PDT ADDITIONAL X-RAY Routine 05/15/2021 3:00 PM PDT BITEWINGS - FOUR RADIOGRAPHIC IMAGES Routine 05/15/2021 3:00 PM [address] [address] CAPTURE AND INTERPRETATION WITH FIELD OF VIEW OF BOTH JAWS; WITH OR WITHOUT CRANIUM Routine 05/15/2021 3:00 PM PDT COMPREHENSIVE ORAL EVALUATION - NEW OR ESTABLISHED PATIENT Routine 05/15/2021 3:00 PM PDT 18 O COMPOSITE FILLING Routine 12:00 AM PDT 15 O COMPOSITE FILLING Routine 12:00 AM PDT 32 O COMPOSITE FILLING Routine 12:00 AM PDT 31 O COMPOSITE FILLING Routine 12:00 AM PDT 2 O COMPOSITE FILLING Routine 05/15/2021 12:00 AM PDT 1 O COMPOSITE FILLING Routine 05/15/2021 12:00 AM PDT 5 DO COMPOSITE FILLING Routine 12:00 AM PDT 4 MO COMPOSITE FILLING Routine 12:00 AM PDT Visit Diagnoses Not on file Insurance [facility] PPO
== END 2025-01-07 12:35 | disposition home or self-care (01) ==
PROVIDERS: Emergency Provider Emergency Medicine
DX: R56.9 Unspecified convulsions (principal); S62.346A Nondisplaced fracture of base of fifth metacarpal bone, right hand, initial encounter for closed fracture; W19.XXXA Unspecified fall, initial encounter
CPT/HCPCS: 29125; 73030; 73130; 99284